=== PATIENT | female | born 1945 | race Caucasian/White ===

== ENCOUNTER 2016-10-22 10:30 | Emergency (ER) | payer MEDICARE, BC ==
[~2016-10-22] VITALS: Ht 167.6 cm; Wt 100.0 kg
[~2016-10-22 10:30] MED LIST: ASPI81TA82 PO; ONDA1TAB16 PO
[2016-10-22 10:33] VITALS: BP 147/85; PULSE 88; RESP 18; TEMP 97.4; O2SAT 93
--- NOTE | 2016-10-22 11:21 | PD ---
HPI Chief Complaint: Pain: Acute or Chronic Time Seen by Provider: 11:21 Travel History International Travel<30 days: No Contact w/Intl Traveler<30days: No Traveled to known affect area: No History of Present Illness HPI 71-year-old female with PMH of migraine presents to the ED for evaluation of 7 day history of pounding frontal headache. Onset gradual. Unlike previous migraines. Patient endorses occasional blurred vision, pain in the left eye radiating to the jaw. She also she has awoken in the middle of the night a few times to terrible headache pain as well as "pounding heart." Patient denies ear pain, sinus congestion, rhinorrhea, sore throat, cough, chest pain, shortness of breath, abdominal pain, nausea or vomiting. She states that she was seen one week ago at a [facility], prescribed Augmentin for a sinus infection. She's been compliant with that medication without improvement of symptoms. She also sought treatment with the chiropractor stating that she's been adjusted and treated with the TENS unit twice. She states that while she is being treated on a TENS unit the headache is improved but otherwise returns. PFSH Past Medical History Chest Pain: Yes Dilation and Curettage (D&C): Yes Past Surgical History Cholecystectomy: Yes Hysterectomy: Yes Tonsillectomy: Yes Other Surgery: Yes (REMOVAL BASIL CELL CARCINOMA;ENDOSCOPY) Social History Alcohol Use: Yes (OCCAS WINE) Tobacco Use: No Substance Use: No Allergies-Medications (Allergen,Severity, Reaction): Coded Allergies: Biaxin (Verified Allergy, Severe, Hives, 02/04/14) Macrodantin (Verified Allergy, Severe, Hives, 02/04/14) Albuterol (Verified Allergy, Unknown, 10/22/16) Cipro (Verified Allergy, Unknown, 10/22/16) Reported Meds & Prescriptions Reported Meds & Active Scripts Active Zofran Tab (Ondansetron HCl) 4 Mg Tab 4 Mg PO Q6 PRN Reported Aspir-81 (Aspirin) 81 Mg Tab 81 Mg PO DAILY Review of Systems Except as stated in HPI: all other systems reviewed are Neg Physical Exam Narrative GENERAL: Well-nourished, well-developed white female appearing younger than her stated age in no acute distress. SKIN: Warm and dry. HEAD: Normocephalic. Atraumatic. EYES: No scleral icterus. No injection or drainage. PERRLA. EOMI. IOP: OD 10, OS 9 FUNDUSCOPIC EXAM: The bilateral funduscopic exam appeared within normal limits without papilledema, A-V nicking or blood associated with the optic disc. Limited due to nondilated pupils. ENT: Pearly brito tympanic membranes bilaterally. Nasal mucosa is moist. Oropharynx without erythema, edema or exudate. DENTAL: No loose or chipped teeth. No malocclusion. No dental caries. No evidence of abscess. NECK: Supple, trachea midline. No JVD. Mild, left-sided submandibular LAD. CARDIOVASCULAR: Regular rate and rhythm without murmurs, gallops, or rubs. No carotid bruits. 2+ DP and radial pulses bilaterally. RESPIRATORY: Breath sounds clear and equal bilaterally. No accessory muscle use. GASTROINTESTINAL: Abdomen soft, non-tender, nondistended. + Bowel sounds MUSCULOSKELETAL: No cyanosis, or edema. The patient is ambulatory and moves extremities spontaneously. NEUROLOGICAL: Awake and alert. Cranial nerves II through XII intact. Motor and sensory grossly within normal limits. 5/5 muscle strength in all muscle groups. Normal speech. BACK: Nontender without obvious deformity. No CVA tenderness. Data Data Last Documented VS Vital Signs Date Time Temp Pulse Resp B/P Pulse Ox O2 Delivery O2 Flow Rate FiO2 10/22/16 12:31 87 18 134/70 98 Room Air 10/22/16 10:33 97.4 Orders Basic Metabolic Panel (Bmp) (10/22/16 11:33) Complete Blood Count With Diff (10/22/16 11:33) Iv Access Insert/Monitor (10/22/16 11:33) C-Reactive Protein (Crp) (10/22/16 11:33) Westergren Sedimentation Rate (10/22/16 11:33) Ecg Monitoring (10/22/16 11:33) Oximetry (10/22/16 11:33) Sodium Chlor 0.9% 1000 Ml Inj (Ns 1000 M (10/22/16 11:33) Blood Culture (10/22/16 11:33) Sodium Chloride 0.9% Flush (Ns Flush) (10/22/16 11:45) Ketorolac Inj (Toradol Inj) (10/22/16 11:45) Prochlorperazine Inj (Compazine Inj) (10/22/16 11:45) Diphenhydramine Inj (Benadryl Inj) (10/22/16 11:45) Ct Brain W/O Iv Contrast(Rout) (10/22/16 11:33) Ct Soft Tiss Neck W Iv Cont (10/22/16 11:33) Electrocardiogram (10/22/16 11:33) Proparacaine 0.5% Opth Soln (Alcaine 0.5 (10/22/16 12:00) Labs Laboratory Tests Test 10/22/16 11:58 White Blood Count 7.2 TH/MM3 Red Blood Count 5.63 MIL/MM3 Hemoglobin 16.7 GM/DL Hematocrit 47.3 % Mean Corpuscular Volume 83.9 FL Mean Corpuscular Hemoglobin 29.7 PG Mean Corpuscular Hemoglobin 35.4 % Concent Red Cell Distribution Width 13.1 % Platelet Count 216 TH/MM3 Mean Platelet Volume 7.9 FL Neutrophils (%) (Auto) 58.9 % Lymphocytes (%) (Auto) 30.6 % Monocytes (%) (Auto) 8.7 % Eosinophils (%) (Auto) 1.3 % Basophils (%) (Auto) 0.5 % Neutrophils # (Auto) 4.2 TH/MM3 Lymphocytes # (Auto) 2.2 TH/MM3 Monocytes # (Auto) 0.6 TH/MM3 Eosinophils # (Auto) 0.1 TH/MM3 Basophils # (Auto) 0.0 TH/MM3 CBC Comment DIFF FINAL Differential Comment Erythrocyte Sedimentation Rate 1 mm/hr Sodium Level 140 MEQ/L Potassium Level 4.1 MEQ/L Chloride Level 106 MEQ/L Carbon Dioxide Level 25.3 MEQ/L Anion Gap 9 MEQ/L Blood Urea Nitrogen 17 MG/DL Creatinine 0.77 MG/DL Estimat Glomerular Filtration 74 ML/MIN Rate Random Glucose 97 MG/DL Calcium Level 9.0 MG/DL C-Reactive Protein 0.76 MG/DL [facility] Medical Decision Making Medical Screen Exam Complete: Yes Emergency Medical Condition: Yes Interpretation(s) EKG rate 76, sinus rhythm. PA interval 200 ms. QRS 83 ms. QTC 426 ms. Normal axis. No ischemic changes. Reviewed by Dr. Schwartz Differential Diagnosis Cephalgia versus migraine versus abscess versus temporal arteritis versus TMJ versus glaucoma versus less likely ICH versus other Narrative Course 71-year-old female with PMH of TMJ and migraine presents to the ED for evaluation of 7 day history of a pounding frontal headache. Patient states this is unlike previous headaches. Also complains of left-sided eye and jaw pain. No red flag symptoms. Vitals reviewed. Physical exam reveals a nontoxic -appearing white female in no acute distress. PERRLA. EOMI. No deficits of visual acuity. No elevation of intraocular pressure. No focal neural deficits. TTP over left jaw. Mild, left-sided submandibular LAD. No trismus. No malocclusion. No evidence of dental abscess. IV was established. Blood cultures were obtained. Patient was administered Toradol, Compazine and Benadryl. CBC: WBC 7.2. Hgb 16.7. CMP unremarkable. CRP 0.76. ESR 1. CT of the head: no acute disease per radiology read. CT of the neck: No evidence of abscess of the neck per radiology read. On recheck the patient is resting comfortable on the stretcher. She reports improvement of her headache. I discussed the results of the workup with Dr. Schwartz. Suspect migraine headache. The patient is advised to rest, hydrate, avoid known stressors, follow up with primary care provider this week. She indicated understanding of the instructions and is amenable to plan of care. She is stable and discharged home. Diagnosis Primary Impression: Cephalalgia Qualified Code: R51 - Acute nonintractable headache, unspecified headache type Additional Impression: Migraine headache without aura Qualified Code: G43.001 - Migraine without aura and with status migrainosus, not intractable Referrals: Primary Care Physician Patient Instructions: Acute Headache (ED), General Instructions Additional Instructions: Rest, hydrate. Avoid known stressors. Follow up with your primary care provider this week. Return to the ED for any urgent or emergent medical condition. Disposition: 01 DISCHARGE HOME Condition: Stable Julianne Hernandez Oct 22, 2016 11:21
[2016-10-22] MEDS ORDERED: SODIUM CHLOR 0.9% 1000 ML INJ 1,000 ML IV SCH (11:33)
[2016-10-22] MEDS ORDERED: PROCHLORPERAZINE INJ 10 MG/2 ML VIAL IVP ONE (11:45)
[2016-10-22] MEDS ORDERED: diphenhydrAMINE HCL 50 MG/ML VIAL IVP ONE (11:45)
[2016-10-22] MEDS ORDERED: KETOROLAC TROMETHAMINE 30 MG/ML (IVP) VIAL IVP ONE (11:45)
[2016-10-22] MEDS ORDERED: SODIUM CHLORIDE 0.9% FLUSH 5 ML FLUSH IVF PRN (11:45)
[2016-10-22 12:00] VITALS: RESP 18; O2SAT 99
[2016-10-22] MEDS ORDERED: PROPARACAINE HCL 0.5% OPHT SOLN 15 ML BTL EACH EYE ONE (12:00)
--- NOTE | 2016-10-22 12:03 | PD ---
Data Data Last Documented VS Vital Signs Date Time Temp Pulse Resp B/P Pulse Ox O2 Delivery O2 Flow Rate FiO2 10/22/16 12:31 87 18 134/70 98 Room Air 10/22/16 10:33 97.4 Orders Basic Metabolic Panel (Bmp) (10/22/16 11:33) Complete Blood Count With Diff (10/22/16 11:33) Iv Access Insert/Monitor (10/22/16 11:33) C-Reactive Protein (Crp) (10/22/16 11:33) Westergren Sedimentation Rate (10/22/16 11:33) Ecg Monitoring (10/22/16 11:33) Oximetry (10/22/16 11:33) Sodium Chlor 0.9% 1000 Ml Inj (Ns 1000 M (10/22/16 11:33) Blood Culture (10/22/16 11:33) Sodium Chloride 0.9% Flush (Ns Flush) (10/22/16 11:45) Ketorolac Inj (Toradol Inj) (10/22/16 11:45) Prochlorperazine Inj (Compazine Inj) (10/22/16 11:45) Diphenhydramine Inj (Benadryl Inj) (10/22/16 11:45) Ct Brain W/O Iv Contrast(Rout) (10/22/16 11:33) Ct Soft Tiss Neck W Iv Cont (10/22/16 11:33) Electrocardiogram (10/22/16 11:33) Proparacaine 0.5% Opth Soln (Alcaine 0.5 (10/22/16 12:00) Iohexol 350 Inj (Omnipaque 350 Inj) (10/22/16 14:09) Labs Laboratory Tests Test 10/22/16 11:58 White Blood Count 7.2 TH/MM3 Red Blood Count 5.63 MIL/MM3 Hemoglobin 16.7 GM/DL Hematocrit 47.3 % Mean Corpuscular Volume 83.9 FL Mean Corpuscular Hemoglobin 29.7 PG Mean Corpuscular Hemoglobin 35.4 % Concent Red Cell Distribution Width 13.1 % Platelet Count 216 TH/MM3 Mean Platelet Volume 7.9 FL Neutrophils (%) (Auto) 58.9 % Lymphocytes (%) (Auto) 30.6 % Monocytes (%) (Auto) 8.7 % Eosinophils (%) (Auto) 1.3 % Basophils (%) (Auto) 0.5 % Neutrophils # (Auto) 4.2 TH/MM3 Lymphocytes # (Auto) 2.2 TH/MM3 Monocytes # (Auto) 0.6 TH/MM3 Eosinophils # (Auto) 0.1 TH/MM3 Basophils # (Auto) 0.0 TH/MM3 CBC Comment DIFF FINAL Differential Comment Erythrocyte Sedimentation Rate 1 mm/hr Sodium Level 140 MEQ/L Potassium Level 4.1 MEQ/L Chloride Level 106 MEQ/L Carbon Dioxide Level 25.3 MEQ/L Anion Gap 9 MEQ/L Blood Urea Nitrogen 17 MG/DL Creatinine 0.77 MG/DL Estimat Glomerular Filtration 74 ML/MIN Rate Random Glucose 97 MG/DL Calcium Level 9.0 MG/DL C-Reactive Protein 0.76 MG/DL MDM Supervised Visit with RODOLFO: Yes Narrative Course I, Dr. Schwartz, have reviewed the advance practice practioner's documentation and am in agreement, met with the patient face to face, made the diagnosis, and the medical decision making was done by me. *My assessment and Findings: 71-year-old female with history of migraine headaches here with complaint of 7 days of a pounding frontal headache, gradual in onset. Some intermittent blurred vision and nausea. Over the course the last 1-2 days the headache has lateralized to the left, tenriism and TMJ area. History of TMJ, but states that after she had 3 or 4 teeth removed she no longer grinds and this is better. She was seen at a urgent care for possible sinus symptoms, states she has a history of allergies. She was placed on Augmentin without any improvement of her symptoms. Patient presents to the ER, primarily concerned that she is having a stroke. She has not had any focal neurologic symptoms. Patient's neurologic examination is unremarkable. Pupils equal round reactive to light, no afferent pupillary defect. Differential includes migraine headache, tension headache, cluster headache, glaucoma, temporal arteritis.Patient has been afebrile, no neck stiffness or noctural headaches, is well-appearing, with a normal neurologic examination. This makes infection and subarachnoid hemorrhage very unlikely. There is not enough evidence to pursue these diagnoses. Head CT and laboratory workup was negative. Patient felt improved after symptomatic treatment will be discharged home. Swetha Schwartz MD Oct 22, 2016 12:03
[2016-10-22 12:13] LABS: AUTOMATED NEUTROPHIL # 4.2 TH/MM3 (1.8-7.7); BASOPHIL % 0.5 % (0.0-2.0); EOSINOPHIL # 0.1 TH/MM3 (0-0.4); EOSINOPHIL % 1.3 % (0.0-4.0); HEMATOCRIT 47.3 % (35.0-46.0); HEMO FLAGS DIFF FINAL; LYMPH % 30.6 % (9.0-44.0); LYMPHOCYTE # 2.2 TH/MM3 (1.0-4.8); MEAN CELL VOLUME 83.9 FL (80.0-100.0); MEAN CORPUSCULAR HEMOGLOBIN 29.7 PG (27.0-34.0); MEAN CORPUSCULAR HGB CONC 35.4 % (32.0-36.0); MONO % 8.7 % (0.0-8.0); NEUT % 58.9 % (16.0-70.0); PLATELET COUNT 216 TH/MM3 (150-450); RED BLOOD COUNT 5.63 MIL/MM3 (4.00-5.30); RED CELL DISTRIBUTION WIDTH 13.1 % (11.6-17.2); WHITE BLOOD COUNT 7.2 TH/MM3 (4.0-11.0)
[2016-10-22 12:31] VITALS: BP 134/70; PULSE 87; RESP 18; O2SAT 98
[2016-10-22 12:37] LABS: BICARBONATE 25.3 MEQ/L (21.0-32.0); POTASSIUM 4.1 MEQ/L (3.5-5.1)
--- NOTE | 2016-10-22 13:54 | RADRPT ---
EXAM DATE/TIME: 10/22/2016 13:15 [facility] COMPARISON: No previous studies available for comparison. INDICATIONS : Cephalgia for one week. RADIATION DOSE: 56.35 CTDIvol (mGy) MEDICAL HISTORY : None SURGICAL HISTORY : Tonsillectomy. ENCOUNTER: Initial ACUITY: 1 week PAIN SCALE: 5/10 LOCATION: cranial TECHNIQUE: Multiple contiguous axial images were obtained of the head. Using automated exposure control and adj ustment of the mA and/or kV according to patient size, radiation dose was kept as low as reasonably a chievable to obtain optimal diagnostic quality images. FINDINGS: CEREBRUM: The ventricles are normal for age. No evidence of midline shift, mass lesion, hemorrhage or acute in farction. No extra-axial fluid collections are seen. POSTERIOR FOSSA: The cerebellum and brainstem are intact. The 4th ventricle is midline. The cerebellopontine angle i s unremarkable. EXTRACRANIAL: The visualized portion of the orbits is intact. SKULL: The calvaria is intact. No evidence of skull fracture. CONCLUSION: No acute disease. Haresh Badillo MD FACR on October 22, 2016 at 13:52 Board Certified Radiologist. This report was verified electronically.
--- NOTE | 2016-10-22 14:00 | RADRPT ---
EXAM DATE/TIME: 10/22/2016 13:16 [facility] COMPARISON: No previous studies available for comparison. INDICATIONS : Right neck/jaw pain. IV CONTRAST: 90 cc Omnipaque 350 (iohexol) IV RADIATION DOSE: 13.49 CTDIvol (mGy) MEDICAL HISTORY : None SURGICAL HISTORY : Tonsillectomy. ENCOUNTER: Initial ACUITY: 1 day PAIN SCALE: 5/10 LOCATION: Right neck TECHNIQUE: Volumetric scanning of the neck was performed. Using automated exposure control and a djustment of the mA and/or kV according to patient size, radiation dose was kept as low as reasonably achievable to obtain optimal diagnostic quality images. FINDINGS: The sinuses are clear. Mandible and maxilla are unremarkable. There is no soft-tissue swelling. Th ere is no evidence for a soft tissue abscess. Nasopharynx and oropharynx are unremarkable. True vocal cords appear normal. CONCLUSION: I do not see evidence for an abscess in the neck. I do not see an etiology for the patient's jaw ana n. Correlation is suggested. Haresh Badillo MD FACR on October 22, 2016 at 13:55 Board Certified Radiologist. This report was verified electronically.
[2016-10-22] MEDS ORDERED: IOHEXOL 350 MG/ML 10 ML VIAL (for RAD DIAG) IV ONE (14:09)
[2016-10-22 14:41] VITALS: BP 133/65; TEMP 98.2
--- NOTE | 2016-10-22 19:52 | EKG ---
Date Performed: 10/22/2016 Time Performed: 12:11:21 PTAGE: 71 years EKG: Sinus rhythm LOW QRS VOLTAGE IN PRECORDIAL LEADS MINIMAL VOLTAGE CRITERIA FOR LVH, CONSIDER NORMAL VARIANT POOR R WAVE PROGRESSION BORDERLINE ECG PREVIOUS TRACING : 02/04/2014 08.05 Compared to the previous tracing, R wave progression throug h precordial leads may be different from previous due to lead placement DOCTOR: Jakub Thomas Interpretating Date/Time 10/22/2016 19:50:53
== END 2016-10-22 15:15 | disposition home or self-care (01) ==
LOC: NEPE 10:30
DX: G43.909 Migraine, unspecified, not intractable, without status migrainosus (principal); R94.31 Abnormal electrocardiogram [ECG] [EKG]
CPT/HCPCS: 70450; 70491; 80048; 85025; 85652; 86140; 87040; 93005; 96374; 96375; 99284; J0780; J1200; J1885; J7030; Q9967